=== PATIENT | male | born 1955 | race Caucasian/White ===

== ENCOUNTER 2018-01-26 09:36 | Outpatient (CLI) | payer BC ==
--- NOTE | 2018-01-26 11:17 | ULT ---
THYROID ULTRASOUND: DATE: 01/26/18. COMPARISON: None. HISTORY: Hypothyroidism. TECHNIQUE: Multiplanar, colon scale sonographic imaging of the thyroid gland obtained. FINDINGS: Thyroid isthmus measures 1 mm in AP dimension. Right lobe measures 0.8 x 2.9 x 0.9 cm and left lobe measures 0.6 x 1.9 x 0.6 cm. The thyroid parenchyma is heterogeneous. No discrete nodule is seen. IMPRESSION: Small heterogeneous thyroid gland. POS: [facility]
== END 2018-01-26 09:37 | disposition home or self-care (01) ==
LOC: SCSULT 09:36
PROVIDERS: ATTEND Family Medicine
DX: E03.9 Hypothyroidism, unspecified (principal)
CPT/HCPCS: 76536

== ENCOUNTER 2019-02-23 08:06 | Outpatient (CLI) | payer BC ==
--- NOTE | 2019-02-23 08:36 | RAD ---
RADIOGRAPH CHEST 2 VIEWS: DATE: 02/23/2019 HISTORY: Pneumonia and persistent cough FINDINGS: There is no airspace density, pulmonary edema, pleural effusion, pneumothorax, or cardiomegaly. IMPRESSION: No acute cardiopulmonary findings.
== END 2019-02-23 08:07 | disposition home or self-care (01) ==
LOC: BICRAD 08:06
PROVIDERS: ATTEND Allergy & Immunology
DX: J18.9 Pneumonia, unspecified organism (principal)
CPT/HCPCS: 71046